=== PATIENT | male | born 1970 | race African-American/Black ===

== ENCOUNTER 2018-10-03 20:48 | Emergency (ER) | payer MEDICAID ==
[~2018-10-03] VITALS: Ht 172.7 cm; Wt 77.0 kg
[2018-10-03] MEDS ORDERED: KETOROLAC 60MG/2ML VIAL IM STA (21:06)
[2018-10-03] MEDS ORDERED: HYDROCODONE/ACETAMINOPHEN 5/325MG TABLET PO STA (21:06)
[2018-10-04 00:14] VITALS: BP 107/78
== END 2018-10-04 00:15 | disposition home or self-care (01) ==
LOC: ER 20:48
DX: M54.5 Low back pain (principal); M25.552 Pain in left hip; G89.29 Other chronic pain; R03.0 Elevated blood-pressure reading, without diagnosis of hypertension; Z87.828 Personal history of other (healed) physical injury and trauma; Z99.3 Dependence on wheelchair
CPT/HCPCS: 96372; 99283; J1885

== ENCOUNTER 2018-10-28 15:53 | Emergency (ER) | payer MEDICAID ==
[~2018-10-28] VITALS: Ht 182.9 cm; Wt 80.0 kg
[2018-10-28 19:00] VITALS: BP 123/83
== END 2018-10-28 19:00 | disposition short-term general hospital (02) ==
LOC: ER 15:53
DX: T40.1X1A Poisoning by heroin, accidental (unintentional), initial encounter (principal); R41.82 Altered mental status, unspecified; F11.10 Opioid abuse, uncomplicated; M25.559 Pain in unspecified hip; Y92.018 Other place in single-family (private) house as the place of occurrence of the external cause
CPT/HCPCS: 93005; 99285